=== PATIENT | male | born 1950 | race Caucasian/White ===

== ENCOUNTER 2016-10-25 10:14 | Emergency (ER) | payer BC ==
[2016-10-25 10:57] LABS: RED BLOOD COUNT 5.12 M/UL (4.20-5.50); WHITE BLOOD COUNT 8.2 K/UL (4.5-11.0)
[2016-10-25 11:23] LABS: BUN/CREATININE RATIO 16 (0-10)
== END 2016-10-25 16:10 | disposition home or self-care (01) ==
LOC: ER1 10:14
PROVIDERS: Emergency Medicine
DX: R07.1 Chest pain on breathing (principal); R00.2 Palpitations; R06.02 Shortness of breath; R11.0 Nausea; I10 Essential (primary) hypertension; Z88.2 Allergy status to sulfonamides; Z79.899 Other long term (current) drug therapy
CPT/HCPCS: 36415; 71010; 80053; 82550; 82553; 83874; 84484; 85025; 93005; 99285; J7050; Q9963

== ENCOUNTER → 2020-08-16 | Outpatient (CLI) | payer BC | LOC: KOH-I 10:32 | DX: M54.5 Low back pain (principal); M51.37 Other intervertebral disc degeneration, lumbosacral region; M47.898 Other spondylosis, sacral and sacrococcygeal region | CPT/HCPCS: 72100; 72220 ==